=== PATIENT | female | born 1935 | race Caucasian/White ===

== ENCOUNTER 2017-03-19 19:17 | Inpatient (IN) | END 2017-03-24 16:58 | disposition home or self-care (01) | DRG 202 ==

== ENCOUNTER 2017-04-15 16:50 | Emergency (ER) | END 2017-04-15 21:13 | disposition home or self-care (01) ==

== ENCOUNTER 2018-01-07 21:58 | Inpatient (IN) | END 2018-01-11 14:15 | disposition home health service (06) | DRG 202 ==